=== PATIENT | female | born 1980 | race Caucasian/White ===

== ENCOUNTER 2023-05-04 10:57 | Day surgery (SDC) | payer MEDICAID ==
[2023-05-01 11:30] LABS: Basophils # (auto) 0 10 ^3/uL (0-0.2); Basophils % (auto) 0.6 % (0.0-2.0); Eosinophils # (auto) 0 10 ^3/uL (0-0.8); Eosinophils % (auto) 0.8 % (0.0-7.0); Hematocrit 41.7 % (36.0-46.0); Hemoglobin 14.1 g/dL (12.2-16.2); Lymphocytes # (auto) 1.6 10 ^3/uL (0.4-5.4); Lymphocytes % (auto) 24.2 % (10.0-50.0); Mean Corpuscular Hemoglobin 30.2 pg (28.0-32.0); Mean Corpuscular Hgb Conc. 33.7 g/dL (32.0-36.0); Mean Corpuscular Volume 89.5 fL (80.0-100.0); Monocytes # (auto) 0.7 10 ^3/uL (0-1.3); Monocytes % (auto) 9.9 % (0.0-12.0); Neutrophils # (auto) 4.3 10 ^3/uL (1.6-8.6); Neutrophils % (auto) 64.5 % (37.0-80.0); Nucleated Red Blood Cells % 0.1 %; Red Blood Cells 4.66 10^6/uL (4.0-5.20); Red Cell Distribution Width 13.2 % (11.8-14.3); White Blood Cell 6.6 10^3/uL (4.4-10.8)
[2023-05-01 11:33] LABS: INR 1.02 (0.9-1.15); Partial Thromboplastin Time 32.3 SEC (24.5-34.5); Prothrombin Time 10.7 sec (9.3-11.8)
[2023-05-01 11:54] LABS: Urine Bacteria FEW /hpf (None Seen); Urine Blood Negative /uL (Negative); Urine Clarity Clear (Clear); Urine Color Colorless (Yellow); Urine Mucus FEW (None Seen); Urine Protein, UAD Negative (Negative); Urine Specific Gravity 1.034 (1.001-1.035); Urine Urobilinogen Normal (Negative); Urine WBC 2 /hpf (0 - 5); Urine pH 5.5 (5.0-8.0)
[2023-05-01 11:58] LABS: Alanine Aminotransferase 16 U/L (7-40); Albumin 4.6 g/dL (3.2-4.8); Alkaline Phosphatase 30 U/L (46-116); Anion Gap 8 (5-15); Aspartate Aminotransferase 13 U/L (13-40); BUN/Creatinine Ratio 13.7 (10.0-20.0); Bilirubin, Total 0.3 mg/dL (0.2-1.0); Blood Urea Nitrogen 10 mg/dL (9-23); Calcium 10.2 mg/dL (8.5-10.1); Carbon Dioxide 25 mmol/L (20-30); Chloride 105 mmol/L (98-107); Glucose 126 mg/dL (74-106); Sodium 138 mmol/L (136-145); Total Protein 7.1 g/dL (5.7-8.2)
[~2023-05-04] VITALS: Ht 157.5 cm; Wt 69.4 kg
[~2023-05-04 10:57] MED LIST: EMPA1TAB PO
[2023-05-04] MEDS ORDERED: ceFAZolin 2 GM/D5W50ml 50 ML IV ONE (12:04)
[2023-05-04] MEDS ORDERED: DexAMETHasone SOD PHOS 10MG/1ML VIAL INJ ONE ×2 (12:49→13:21)
[2023-05-04] MEDS ORDERED: ONDANSETRON HCL 4 MG/2 ML VIAL ONE ×2 (12:49→13:21)
[2023-05-04] MEDS ORDERED: PROPOFOL 10 MG/ML 20 ML IV ONE ×2 (12:49→13:00)
[2023-05-04] MEDS ORDERED: KETAMINE 50mg/ML 1ml syringe ONE (12:49)
[2023-05-04] MEDS ORDERED: GLYCOPYRROLATE 0.2 MG/ML 1ML VIAL ONE (12:49)
[2023-05-04] MEDS ORDERED: KETOROLAC TROMETH 30 MG/ML 1ML VIAL ONE (12:49)
[2023-05-04] MEDS ORDERED: fentaNYL CITRATE 100 MCG/2 ML VL ONE (13:00)
[2023-05-04] MEDS ORDERED: AUG875T PO (13:11)
[2023-05-04] MEDS ORDERED: HYDR-4902 PO (13:11)
[2023-05-04] MEDS: BUPIVACAINE 0.5% P/F INJ 10 ML VIAL ONE (13:21)
[2023-05-04] MEDS: LIDOCAINE HCL (LOCAL ANESTH.) 0.5 % 50ML MDV IJ ONE (13:21)
[2023-05-04] MEDS ORDERED: ePHEDrine SULFATE 50 MG/ML AMP ONE (13:30)
[2023-05-04 14:28] VITALS: TEMP 97.2; O2SAT 98
[2023-05-04] MEDS ORDERED: HYDROmorphone HCL 2 MG/ML VL/or syr IV PRN (14:45)
[2023-05-04] MEDS ORDERED: MEPERIDINE HCL (25 MG/ML) 1ML VIAL IV PRN (14:45)
[2023-05-04] MEDS ORDERED: ONDANSETRON HCL 4 MG/2 ML VIAL IV PRN (14:45)
[2023-05-04 15:30] VITALS: BP 121/84; PULSE 86; RESP 16; O2SAT 99
== END 2023-05-04 15:34 | disposition home or self-care (01) ==
LOC: SUR 10:57
PROVIDERS: ATTEND Student in an Organized Health Care Education/Training Program
DX: M20.12 Hallux valgus (acquired), left foot (principal); M20.22 Hallux rigidus, left foot; E11.9 Type 2 diabetes mellitus without complications; Z79.84 Long term (current) use of oral hypoglycemic drugs; Z79.891 Long term (current) use of opiate analgesic
CPT/HCPCS: 28299; 36415; 73620; 73630; 76000; 80053; 81001; 82962; 84702; 85025; 85610; 85730; J0690; J1100; J2405; J2704; J3010; J3490; L3260; J1885